=== PATIENT | male | born 1935 | race Caucasian/White ===

== ENCOUNTER 2016-10-24 19:39 | Inpatient (IN) | payer OTHER, MEDICARE, BC ==
[~2016-10-24] VITALS: Ht 177.8 cm; Wt 108.6 kg
[2016-10-24 19:39] VITALS: O2SAT 94
[2016-10-24] MEDS ORDERED: DIPHTH/TETANUS/ACEL PERTUSSIS (BOOSTER) 0.5 ML VIAL/PFS IM ONE (19:47)
[2016-10-24] MEDS ORDERED: ONDANSETRON HCL 4 MG/2 ML VIAL IV PRN (20:00)
[2016-10-24] MEDS ORDERED: PROTHROMBIN COMPLEX CONC INJ 2,500 UNITS in SYRINGE/BAG 1 EA IV ONE (20:00)
[2016-10-24] MEDS ORDERED: MORPHINE SULFATE 4 MG/ML INJ IV PRN (20:00)
[2016-10-24] MEDS ORDERED: oxyCODONE/ACETAMINOPHEN 5 MG/325 MG TAB PO PRN (20:00)
[2016-10-24] MEDS ORDERED: Post-op Orders (for Pharmacy) MISC XX ONE (20:00)
[2016-10-24] MEDS ORDERED: NALOXONE HCL 0.4 MG/ML AMP IV PRN (20:00)
[2016-10-24] MEDS ORDERED: SODIUM CHLORIDE 0.9% FLUSH 10 ML FLUSH IV FLUSH PRN (20:00)
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
[2016-10-24 20:09] LABS: I-STAT POTASSIUM 4.8 MMOL/L (3.5-4.9); I-STAT SODIUM 138 MMOL/L (138-146)
[2016-10-24 20:10] LABS: AUTOMATED NEUTROPHIL # 11.8 TH/MM3 (1.8-7.7); BASOPHIL # 0.2 TH/MM3 (0-0.2); BASOPHIL % 1.4 % (0.0-2.0); EOSINOPHIL # 0.1 TH/MM3 (0-0.4); EOSINOPHIL % 0.4 % (0.0-4.0); HEMATOCRIT 41.1 % (39.0-51.0); LYMPH % 10.5 % (9.0-44.0); LYMPHOCYTE # 1.6 TH/MM3 (1.0-4.8); MEAN CELL VOLUME 91.4 FL (80.0-100.0); MEAN CORPUSCULAR HEMOGLOBIN 31.1 PG (27.0-34.0); NEUT % 79.7 % (16.0-70.0); PLATELET COUNT 199 TH/MM3 (150-450); RED BLOOD COUNT 4.49 MIL/MM3 (4.50-5.90); RED CELL DISTRIBUTION WIDTH 14.9 % (11.6-17.2); WHITE BLOOD COUNT 14.8 TH/MM3 (4.0-11.0)
[2016-10-24 20:18] LABS: APTT (PATIENT) 23.6 SEC (24.3-30.1); HEMO FLAGS AUTO DIFF; PROTHROMBIN TIME - PATIENT 11.3 SEC (9.8-11.6)
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
[2016-10-24 20:27] VITALS: O2SAT 95
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
[2016-10-24 20:36] LABS: CREATINE KINASE 436 U/L (39-308)
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
[2016-10-24 20:49] LABS: CKMB 2.9 NG/ML (0.5-3.6)
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
[2016-10-24 20:54] LABS: PLATELET ESTIMATE SMEAR NORMAL (NORMAL); PLATELET MORPHOLOGY NORMAL (NORMAL); SCAN/DIFF AUTO DIFF CONFIRMED
[2016-10-24 21:00] VITALS: BP 152/76; PULSE 136; RESP 26; TEMP 98; O2SAT 97
[2016-10-24] MEDS: SODIUM CHLORIDE 0.9% FLUSH 10 ML FLUSH IV FLUSH SCH (21:00)
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
[2016-10-24] MEDS: SODIUM CHLOR 0.9% 1000 ML INJ 1,000 ML IV SCH (21:37)
[2016-10-24] MEDS: PANTOPRAZOLE SOD 40 MG DELAYED RELEASE TAB PO SCH (21:39)
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
[2016-10-24 22:00] VITALS: PULSE 135
[2016-10-24] MEDS ORDERED: RESP: ALBUTEROL 2.5 MG/IPRATROPIUM 0.5 MG NEB (SCH) NEB (22:00)
[2016-10-25] VITALS (14 sets, daily range): BP systolic 117–150; BP diastolic 64–80; PULSE 71–132; RESP 22–26; TEMP 97.6–98.9; O2SAT 94–100
[2016-10-25] MEDS ORDERED: DILTIAZEM INJ 125 MG in SODIUM CHLORIDE 0.9% INJ 100 ML IV SCH (01:30)
[2016-10-25] MEDS ORDERED: DILTIAZEM HCL 25 MG/5 ML VIAL IVP ONE (01:30)
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
[2016-10-25 02:27] LABS: AUTOMATED NEUTROPHIL # 8.5 TH/MM3 (1.8-7.7); BASOPHIL % 0.4 % (0.0-2.0); EOSINOPHIL % 0.1 % (0.0-4.0); HEMATOCRIT 35.8 % (39.0-51.0); HEMO FLAGS DIFF FINAL; LYMPH % 12.6 % (9.0-44.0); LYMPHOCYTE # 1.4 TH/MM3 (1.0-4.8); MEAN CELL VOLUME 91.2 FL (80.0-100.0); MEAN CORPUSCULAR HEMOGLOBIN 32.2 PG (27.0-34.0); MEAN CORPUSCULAR HGB CONC 35.3 % (32.0-36.0); MONO % 8.6 % (0.0-8.0); NEUT % 78.3 % (16.0-70.0); PLATELET COUNT 144 TH/MM3 (150-450); RED BLOOD COUNT 3.93 MIL/MM3 (4.50-5.90); RED CELL DISTRIBUTION WIDTH 14.7 % (11.6-17.2); WHITE BLOOD COUNT 10.9 TH/MM3 (4.0-11.0)
[2016-10-25 02:41] LABS: PROTHROMBIN TIME - PATIENT 11.3 SEC (9.8-11.6)
[2016-10-25 02:48] LABS: ANION GAP 10 MEQ/L (5-15); AST (GOT) 50 U/L (15-37); BICARBONATE 27.7 MEQ/L (21.0-32.0); BLOOD UREA NITROGEN 16 MG/DL (7-18); CHLORIDE 101 MEQ/L (98-107); GLOMERULAR FILTRATION RATE 65 ML/MIN (>89); MAGNESIUM 1.6 MG/DL (1.5-2.5); SODIUM (NA) 139 MEQ/L (136-145)
[2016-10-25 02:51] LABS: ALKALINE PHOSPHATASE 65 U/L (45-117); ALT (GPT) 50 U/L (12-78); TOTAL BILIRUBIN ADULT 0.6 MG/DL (0.2-1.0)
[2016-10-25] MEDS ORDERED: SODIUM PHOSPHATE INJ 30 MMOL in SODIUM CHLOR 0.9% 250 ML INJ 240 ML IV PRN (04:15)
[2016-10-25] MEDS ORDERED: MAGNESIUM SULFATE INJ 2 GM in SODIUM CHLORIDE 0.9% INJ 96 ML IV PRN (04:15)
[2016-10-25] MEDS ORDERED: POTASSIUM PHOSPHATE MONOBASIC 500 MG TAB PO/TUBE PRN (04:15)
[2016-10-25] MEDS ORDERED: MAGNESIUM SULFATE INJ 4 GM in SODIUM CHLORIDE 0.9% INJ 92 ML IV PRN (04:15)
[2016-10-25] MEDS ORDERED: POTASSIUM CHLOR 40 MEQ PREMIX 100 ML IV PRN ×2 (04:15)
[2016-10-25] MEDS ORDERED: POTASSIUM PHOSPHATE MONOBASIC 500 MG TAB PO PRN (04:15)
[2016-10-25] MEDS ORDERED: MAGNESIUM SULFATE 1 GM PREMIX 100 ML IV ONE (04:15)
[2016-10-25] MEDS ORDERED: POTASSIUM CHLORIDE 25 MEQ EFFERVESCENT TAB PO PRN (04:15)
[2016-10-25] MEDS ORDERED: POTASSIUM CHLOR 20 MEQ PREMIX 100 ML IV PRN ×2 (04:15)
[2016-10-25] MEDS ORDERED: POTASSIUM PHOSPHATE INJ 30 MMOL in SODIUM CHLOR 0.9% 250 ML INJ 250 ML IV PRN (04:15)
[2016-10-25] MEDS ORDERED: MAGNESIUM OXIDE 400 MG TAB PO PRN (04:15)
[2016-10-25] MEDS ORDERED: ARTHTAB5 PO (04:17)
[2016-10-25] MEDS ORDERED: FLUT50SP EACH NARE (04:17)
[2016-10-25] MEDS ORDERED: RANI300T PO (04:17)
[2016-10-25] MEDS ORDERED: POTA-245 PO (04:17)
[2016-10-25] MEDS ORDERED: FINA5TAB2 PO (04:17)
[2016-10-25] MEDS ORDERED: XARE20TA PO (04:17)
[2016-10-25] MEDS ORDERED: SIMV20TA PO (04:17)
[2016-10-25] MEDS ORDERED: PROCHCT RECTAL (04:17)
[2016-10-25] MEDS ORDERED: METO2.5T PO (04:17)
[2016-10-25] MEDS ORDERED: FOLI1TAB4 PO (04:17)
[2016-10-25] MEDS: DILTIAZEM HCL 30 MG TAB PO SCH ×4 (04:24→22:46)
--- NOTE | 2016-10-25 06:51 | RADRPT ---
EXAM DATE/TIME: 10/25/2016 04:56 [facility] COMPARISON: CHEST SINGLE AP, October 24, 2016, 19:36. INDICATIONS : Shortness of breath. possible pulmonary disease. MEDICAL HISTORY : None. SURGICAL HISTORY : None. ENCOUNTER: Subsequent ACUITY: 2 days PAIN SCORE: 7/10 LOCATION: Left chest FINDINGS: A single view of the chest demonstrates the lungs to be symmetrically aerated without evidence of mas s, infiltrate or effusion. The cardiomediastinal contours are unremarkable. Nondisplaced left clavic le fracture. CONCLUSION: Normal examination. Lungs are clear. Agustin Montero MD on October 25, 2016 at 6:49 Board Certified Radiologist. This report was verified electronically.
[2016-10-25] MEDS: RESP: ALBUTEROL 2.5 MG/IPRATROPIUM 0.5 MG NEB (SCH) NEB ×3 (07:12→19:22)
[2016-10-25] MEDS: SODIUM CHLORIDE 0.9% FLUSH 10 ML FLUSH IV FLUSH SCH ×2 (09:00→20:50)
[2016-10-25] MEDS: FINASTERIDE 5 MG TAB PO SCH (09:44)
[2016-10-25] MEDS: DOCUSATE SODIUM 100 MG CAP PO SCH ×3 (09:44→17:53)
[2016-10-25] MEDS: ATORVASTATIN 20 MG TAB PO SCH (09:44)
[2016-10-25] MEDS ORDERED: ACETAMINOPHEN/HYDROcodone 325 MG/5 MG TAB PO PRN (10:00)
[2016-10-25] MEDS ORDERED: RESP: ALBUTEROL 2.5 MG/3 ML NEB (PRN) NEB (10:00)
[2016-10-25] MEDS ORDERED: MORPHINE SULFATE 4 MG/ML INJ IV PRN (11:00)
--- NOTE | 2016-10-25 11:42 | EKG ---
Date Performed: 10/24/2016 Time Performed: 19:50:24 PTAGE: 89 years EKG: Paroxysmal Atrial fibrillation Sinus rhythm with first degree AV block POSSIBLE ANTERIOR MYOCARDIAL INFARCTION ST DEVIATION AND MODERATE T-WAVE ABNORMALITY, CONSIDER INFERIOR ISCHEMIA ABNORMAL ECG INTERPRETATION BASED ON A DEFAULT AGE OF 38 YEAR S NO PREVIOUS TRACING DOCTOR: Patrick Higgins Interpretating Date/Time 10/25/2016 11:41:43
[2016-10-25] MEDS: ACETAMINOPHEN/HYDROcodone 325 MG/5 MG TAB PO PRN (13:36)
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
[2016-10-25] MEDS: LIDOCAINE HCL 5% PATCH T-DERMAL SCH ×2 (15:15→22:43)
[2016-10-25] MEDS: SODIUM CHLOR 0.9% 1000 ML INJ 1,000 ML IV SCH (17:52)
[2016-10-25] MEDS: METHOCARBAMOL 500 MG TAB PO SCH ×2 (17:53→20:50)
--- NOTE | 2016-10-25 18:06 | EKG ---
Date Performed: 10/25/2016 Time Performed: 11:13:48 PTAGE: 81 years EKG: Sinus rhythm with first degree AV block and consecutive premature atrial contractions IV conduction defect Cannot rule out anterior infarct - age undetermined LVH with secondary repolarization abnormality Inferior/ lateral ST-T changes are probably due to ventricular hypertrophy Low QRS voltages in precordial leads Abnormal ECG NO SIGNIFICANT CHANGE FROM PRIOR ELECTROCARDIOGRAM. PREVIOUS TRACING : 10/24/2016 19.50 DOCTOR: Loc Avendano Interpretating Date/Time 10/25/2016 18:05:53
--- NOTE | 2016-10-25 19:02 | EC ---
Study Study Date:10/25/2016 STUDY CONCLUSIONS SUMMARY Procedure narrative: Image quality was poor. The study was technically limited due to poor acoustic window availability.No significant information can be determined from the images. If concern, consider repeating when not tachycardiac, although overall windows appear difficult. If LV function is below 40, please consider prescribing an ACEI or ARB or document rationale for non-use. PROCEDURE DATA STUDY STATUS: Elective. Procedure: Transthoracic echocardiography. Image quality was poor. The study was technically limited due to poor acoustic window availability. Scanning was performed from the parasternal, apical, and subcostal acoustic windows. Study completion: The patient tolerated the procedure well. Transthoracic echocardiography. M-mode, complete 2D, complete spectral Doppler, and color Doppler. Patient status: Inpatient. CARDIAC ANATOMY LEFT VENTRICLE: Not well visualized. AORTIC VALVE: The valve appears to be grossly normal. Doppler: There was no stenosis. No significant regurgitation. MITRAL VALVE: The valve appears to be grossly normal. Doppler: There was no evidence for stenosis. No significant regurgitation. Peak gradient: 3mm Hg (D). PULMONIC VALVE: Not well visualized. TRICUSPID VALVE: The valve appears to be grossly normal. Doppler: There was no evidence for stenosis. Trace regurgitation. PERICARDIUM: Not well visualized. BASIC MEASUREMENTS ADULT NORMAL Left ventricle LV internal dimension, ED, chordal level, 45.6 mm 43-52 PLAX LV internal dimension, ES, chordal level, 36.3 mm 23-38 PLAX Fractional shortening, chordal level, PLAX *20 % >29 LV posterior wall thickness, ED 9.15 mm IVS/LVPW ratio, ED 1.18 <1.3 Ventricular septum Septal thickness, ED 10.8 mm Aortic valve Leaflet separation 24 mm 15-26 Left atrium Anterior-posterior dimension 30 mm Right ventricle RV internal dimension, ED, PLAX 27.9 mm 19-38 BASIC MEASUREMENTS ADULT NORMAL Aortic valve Leaflet separation 24 mm 15-26 Aorta Root diameter, ED 35 mm 20-37 DOPPLER MEASUREMENTS ADULT NORMAL Mitral valve Peak E-wave velocity 84.4 cm/s Peak A-wave velocity 61.7 cm/s Peak gradient, D 3 mm Hg Peak E/A ratio 1.4 Tricuspid valve Regurgitant peak velocity 212 cm/s Peak RV-RA gradient, S 18 mm Hg Maximal regurgitant velocity 212 cm/s LEGEND: Mean values are shown as u=mean value. Asterisk (*) vleez values outside specified normal range. Prepared and signed by Zion Briggs [id number]
[2016-10-25] MEDS: PANTOPRAZOLE SOD 40 MG DELAYED RELEASE TAB PO SCH (20:00)
--- NOTE | 2016-10-25 20:39 | RADRPT ---
EXAM DATE/TIME: 10/25/2016 20:08 [facility] COMPARISON: SHOULDER LEFT LTD (2VWS), October 24, 2016, 20:04. INDICATIONS : Left clavicle pain. MEDICAL HISTORY : None. SURGICAL HISTORY : None. ENCOUNTER: Initial ACUITY: 2 weeks PAIN SCORE: 10/10 LOCATION: Bilateral clavicle. FINDINGS: There is an acute appearing fracture again seen of the midshaft of the left clavicle. There is about one shaft width of inferior displacement and a slight degree of overlap slight foreshortening. Moderate severity osteoarthritis seen of the acromioclavicular joint. There severe osteoarthritis of the glenohumeral joint. CONCLUSION: Mildly displaced/overlapping midshaft fracture of the left clavicle again noted. Alignment is unchang ed. Sudheer Cabral MD on October 25, 2016 at 20:36 Board Certified Radiologist. This report was verified electronically.
[2016-10-25] MEDS ORDERED: MAGNESIUM HYDROXIDE SUSP 30 ML CUP PO SCH (21:00)
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
[2016-10-26] VITALS (11 sets, daily range): BP systolic 135–143; BP diastolic 64–70; PULSE 67–98; RESP 10–28; TEMP 97.8–98.9; O2SAT 95–100
[2016-10-26] MEDS: DILTIAZEM HCL 30 MG TAB PO SCH ×2 (04:24→10:42)
[2016-10-26] MEDS: METHOCARBAMOL 500 MG TAB PO SCH ×2 (04:24→16:15)
[2016-10-26 04:26] LABS: AUTOMATED NEUTROPHIL # 11.4 TH/MM3 (1.8-7.7); BASOPHIL % 0.2 % (0.0-2.0); HEMATOCRIT 39.6 % (39.0-51.0); LYMPH % 9.4 % (9.0-44.0); LYMPHOCYTE # 1.4 TH/MM3 (1.0-4.8); MEAN CELL VOLUME 93.7 FL (80.0-100.0); MEAN CORPUSCULAR HEMOGLOBIN 31.1 PG (27.0-34.0); MEAN CORPUSCULAR HGB CONC 33.2 % (32.0-36.0); MONO % 12.3 % (0.0-8.0); NEUT % 78.1 % (16.0-70.0); PLATELET COUNT 118 TH/MM3 (150-450); RED BLOOD COUNT 4.22 MIL/MM3 (4.50-5.90); RED CELL DISTRIBUTION WIDTH 15.4 % (11.6-17.2); WHITE BLOOD COUNT 14.6 TH/MM3 (4.0-11.0)
[2016-10-26 04:36] LABS: HEMO FLAGS AUTO DIFF
[2016-10-26 04:53] LABS: ALT (GPT) 44 U/L (12-78); ANION GAP 8 MEQ/L (5-15); AST (GOT) 38 U/L (15-37); BLOOD UREA NITROGEN 13 MG/DL (7-18); CHLORIDE 96 MEQ/L (98-107); GLOMERULAR FILTRATION RATE 82 ML/MIN (>89); POTASSIUM 3.3 MEQ/L (3.5-5.1); SODIUM (NA) 133 MEQ/L (136-145)
[2016-10-26 04:56] LABS: ALKALINE PHOSPHATASE 50 U/L (45-117); TOTAL BILIRUBIN ADULT 1.6 MG/DL (0.2-1.0)
--- NOTE | 2016-10-26 07:00 | RADRPT ---
EXAM DATE/TIME: 10/26/2016 05:51 [facility] COMPARISON: CHEST SINGLE AP, October 25, 2016, 4:56. INDICATIONS : Shortness of breath. MEDICAL HISTORY : None. SURGICAL HISTORY : None. ENCOUNTER: Subsequent ACUITY: 3 days PAIN SCORE: Non-responsive. LOCATION: Bilateral chest FINDINGS: There is some mild platelike atelectasis in both lower lungs. There is mild plate like atelectasis in the right upper lung. Otherwise, the rest of the lungs are grossly clear. No significant change comp ared to the prior study. The heart size is stable. There are no pleural effusions. The bony structure s are stable with a fracture involving the left clavicle. CONCLUSION: There are scattered areas of bilateral atelectasis. Otherwise, no significant changes. Winston Domínguez MD on October 26, 2016 at 6:58 Board Certified Radiologist. This report was verified electronically.
[2016-10-26] MEDS: RESP: ALBUTEROL 2.5 MG/IPRATROPIUM 0.5 MG NEB (SCH) NEB ×2 (07:35→11:36)
[2016-10-26 08:08] LABS: BANDS 8 % (0-6); METAMYELOCYTES 1 % (0-1); NEUTROPHIL # MANUAL DIFF 12.8 TH/MM3 (1.8-7.7); POLYS (SEG NEUTROPHILS) 79 % (16-70); WBC DIFF SAMPLE 100
[2016-10-26 08:09] LABS: PLATELET ESTIMATE SMEAR LOW (NORMAL); PLATELET MORPHOLOGY NORMAL (NORMAL); SCAN/DIFF FINAL DIFF MANUAL
[2016-10-26] MEDS: ATORVASTATIN 20 MG TAB PO SCH (08:46)
[2016-10-26] MEDS: DOCUSATE SODIUM 100 MG CAP PO SCH ×2 (08:46→12:34)
[2016-10-26] MEDS: FINASTERIDE 5 MG TAB PO SCH (08:46)
[2016-10-26] MEDS: SODIUM CHLORIDE 0.9% FLUSH 10 ML FLUSH IV FLUSH SCH (08:56)
[2016-10-26] MEDS: SODIUM CHLOR 0.9% 1000 ML INJ 1,000 ML IV SCH (10:42)
[2016-10-26] MEDS: LIDOCAINE HCL 5% PATCH T-DERMAL SCH (10:43)
[2016-10-26] MEDS ORDERED: FAMOTIDINE 20 MG TAB PO SCH (12:00)
[2016-10-26] MEDS: ACETAMINOPHEN/HYDROcodone 325 MG/5 MG TAB PO PRN (12:34)
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
[2016-10-26] MEDS ORDERED: LACTULOSE SYRUP 20 GM/30 ML CUP PO SCH (15:15)
[2016-10-26] MEDS ORDERED: LACT10SO PO (15:36)
[2016-10-26] MEDS ORDERED: DILT31TA PO (15:36)
[2016-10-26] MEDS ORDERED: MILKSUS PO (15:36)
[2016-10-26] MEDS ORDERED: DOCU1CAP39 PO (15:36)
[2016-10-26] MEDS ORDERED: METH500T3 PO (15:36)
[2016-10-26] MEDS ORDERED: HYDR-3516 PO (15:36)
[2016-10-26] MEDS ORDERED: ROPI2 PO (15:36)
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
[2016-10-26] MEDS ORDERED: BISACODYL 10 MG SUPP RECTAL ONE ×2 (16:30→17:00)
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
[2016-10-26] MEDS ORDERED: BISACODYL EC 5 MG TABEC PO ONE (17:00)
[2016-11-01] MEDS ORDERED: FAMO20TA2 PO (11:11)
[2016-11-01] MEDS ORDERED: FINA5TAB2 PO (11:11)
[2016-11-01] MEDS ORDERED: IPRASOL NEB (11:11)
[2016-11-01] MEDS ORDERED: DOCU1CAP39 PO (11:11)
[2016-11-01] MEDS ORDERED: DILT31TA PO (11:11)
[2016-11-01] MEDS ORDERED: QUET1TAB7 PO (11:11)
[2016-11-01] MEDS ORDERED: XARE20TA PO (11:11)
[2016-11-01] MEDS ORDERED: ACET325T PO (11:11)
[2016-11-01] MEDS ORDERED: LIDO5DIS35 T-DERMAL (11:11)
[2016-11-01] MEDS ORDERED: FOLI1TAB4 PO (11:11)
[2016-11-01] MEDS ORDERED: ROPI2 PO (11:11)
[2016-11-01] MEDS ORDERED: POTA-245 PO (11:11)
[2016-11-01] MEDS ORDERED: SIMV20TA PO (11:11)
== END 2016-10-26 16:51 | DRG 184 ==
LOC: NEPI 19:39 → EDBD 20:19 → NEDA 20:19 → N03B 20:27
PROVIDERS: ADMIT Surgery; ATTEND Surgery
PROC: 30233K1 Transfusion of Nonautologous Frozen Plasma into Peripheral Vein, Percutaneous Approach (ICD-10-PCS; principal; 2016-10-24)
DX: S22.41XA Multiple fractures of ribs, right side, initial encounter for closed fracture (principal); S42.022A Displaced fracture of shaft of left clavicle, initial encounter for closed fracture; E44.1 Mild protein-calorie malnutrition; I48.91 Unspecified atrial fibrillation; J44.9 Chronic obstructive pulmonary disease, unspecified; E78.5 Hyperlipidemia, unspecified; G25.81 Restless legs syndrome; D72.829 Elevated white blood cell count, unspecified; E87.6 Hypokalemia; S30.1XXA Contusion of abdominal wall, initial encounter; I25.10 Atherosclerotic heart disease of native coronary artery without angina pectoris; K21.9 Gastro-esophageal reflux disease without esophagitis; N40.0 Benign prostatic hyperplasia without lower urinary tract symptoms; V47.5XXA Car driver injured in collision with fixed or stationary object in traffic accident, initial encounter; Y92.410 Unspecified street and highway as the place of occurrence of the external cause; Y93.89 Activity, other specified; Y99.9 Unspecified external cause status; Z79.02 Long term (current) use of antithrombotics/antiplatelets; M19.90 Unspecified osteoarthritis, unspecified site; Z88.1 Allergy status to other antibiotic agents; Z88.0 Allergy status to penicillin; Z88.8 Allergy status to other drugs, medicaments and biological substances; M48.06 Spinal stenosis, lumbar region; M06.9 Rheumatoid arthritis, unspecified; Z96.1 Presence of intraocular lens; Z87.891 Personal history of nicotine dependence; Z82.49 Family history of ischemic heart disease and other diseases of the circulatory system; Z79.899 Other long term (current) drug therapy
CPT/HCPCS: 36430; 70450; 70486; 71010; 71250; 72125; 72128; 72131; 73000; 73030; 73564; 74176; 80053; 80307; 82435; 82550; 82552; 82565; 82947; 83735; 84100; 84132; 84295; 84484; 84520; 85007; 85025; 85027; 85384; 85610; 85730; 86850; 86900; 86901; 86920; 87641; 90471; 90715; 93005; 93306; 94150; 94640; 94664; 96374; 99291; G0390; J2270; J3475; J3480; J7030; P9017

== ENCOUNTER 2016-11-04 18:53 | Emergency (ER) | payer MEDICARE, BC ==
[~2016-11-04] VITALS: Ht 172.7 cm; Wt 90.0 kg
[~2016-11-04 18:53] MED LIST: ACET325T PO; DILT31TA PO; DOCU1CAP39 PO; FAMO20TA2 PO; FINA5TAB2 PO; FOLI1TAB4 PO; IPRASOL NEB; LIDO5DIS35 T-DERMAL; POTA-245 PO; QUET1TAB7 PO; ROPI2 PO; SIMV20TA PO; XARE20TA PO
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
[2016-11-04 19:30] VITALS: BP 140/65; PULSE 75; RESP 16; O2SAT 97
[2016-11-04 19:51] LABS: BASOPHIL # 0.1 TH/MM3 (0-0.2); BASOPHIL % 0.8 % (0.0-2.0); EOSINOPHIL # 0.1 TH/MM3 (0-0.4); EOSINOPHIL % 1.6 % (0.0-4.0); HEMATOCRIT 35.2 % (39.0-51.0); LYMPH % 22.5 % (9.0-44.0); LYMPHOCYTE # 1.7 TH/MM3 (1.0-4.8); MEAN CELL VOLUME 92.4 FL (80.0-100.0); MEAN CORPUSCULAR HEMOGLOBIN 30.1 PG (27.0-34.0); MEAN CORPUSCULAR HGB CONC 32.5 % (32.0-36.0); MONO % 9.3 % (0.0-8.0); NEUT % 65.8 % (16.0-70.0); PLATELET COUNT 289 TH/MM3 (150-450); RED BLOOD COUNT 3.81 MIL/MM3 (4.50-5.90); RED CELL DISTRIBUTION WIDTH 14.9 % (11.6-17.2); WHITE BLOOD COUNT 7.6 TH/MM3 (4.0-11.0)
[2016-11-04 19:58] LABS: HEMO FLAGS AUTO DIFF
[2016-11-04 20:18] LABS: BICARBONATE 24.2 MEQ/L (21.0-32.0); POTASSIUM 4.3 MEQ/L (3.5-5.1)
[2016-11-04 20:22] LABS: BACTERIA, URINE OCC /hpf; BLOOD, URINE MOD (NEG); COMMENT (UR) CULTURE INDICATED; CULTURE IF INDICATED CULTURE INDICATED; GLUCOSE,URINE NEG (NEG); KETONE, URINE 10 mg/dL (NEG); MUCUS URINE MOD /lpf (OCC); NITRITE,URINE NEG (NEG); PH, URINE 5.5 (5.0-8.5); RENAL EPITHELIAL CELLS <1 /hpf; URINE COLOR YELLOW (YELLW/STRAW)
[2016-11-04] MEDS ORDERED: NITROFURANTOIN MONOHYD MACROCR 100 MG CAP PO ONE (20:45)
[2016-11-04] MEDS ORDERED: MACR100C2 PO (21:00)
[2016-11-04] MEDS ORDERED: ACETAMINOPHEN 325 MG TAB PO ONE (21:00)
[2016-11-04 21:14] LABS: SCAN/DIFF AUTO DIFF CONFIRMED
[2016-11-04 21:15] LABS: PLATELET ESTIMATE SMEAR NORMAL (NORMAL); PLATELET MORPHOLOGY NORMAL (NORMAL)
[2016-11-05 04:42] VITALS: BP 135/63; PULSE 70; RESP 18; TEMP 97.8; O2SAT 95
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
--- NOTE | 2016-11-05 07:49 | EKG ---
Date Performed: 11/04/2016 Time Performed: 20:11:25 PTAGE: 81 years EKG: Baseline artifact present Sinus rhythm with premature atrial contractions LOW QRS VOLTAGE IN PRECORDIAL LEADS INTRAVENTRICULAR CONDUCTION DELAY NONSPECIFIC T-WAVE ABNORMALITY ABNORMAL RHYTHM ECG COMPARED TO PRIOR ELECTROCARDIOGRAM, Both EK Gs have artifact but T wave changes appear to have improved. PREVIOUS TRACING : 10/25/2016 11.13 DOCTOR: Loc Avendano Interpretating Date/Time 11/05/2016 07:48:52
[2016-11-05 12:00] VITALS: BP 140/68; PULSE 68; RESP 15; O2SAT 98
== END 2016-11-05 13:19 | disposition home or self-care (01) ==
LOC: NEPC 18:53 → NEPD 11-05 13:19
DX: N39.0 Urinary tract infection, site not specified (principal); B95.61 Methicillin susceptible Staphylococcus aureus infection as the cause of diseases classified elsewhere; F43.25 Adjustment disorder with mixed disturbance of emotions and conduct; I48.91 Unspecified atrial fibrillation
CPT/HCPCS: 80048; 81001; 85025; 86403; 87086; 87185; 87186; 93005